=== PATIENT | female | born 1945 | race African-American/Black ===

== ENCOUNTER 2017-06-22 02:12 | Observation (INO) ==
[2017-06-22] MEDS ORDERED: ASPIRIN 325 MG TABLET PO STA (03:51)
[2017-06-22 04:04] LABS: Basophils % 0.2 % (0.0-0.8); Eosinophils % 0.1 % (0.00-10.9); Hematocrit 36.3 VOL% (35.7-47.0); Immature Granulocytes % 0.5 %; Immature Granulocytes Absolute 0.08 #; Lymphocytes % 17.4 % (21.3-54.2); Mean Corpuscular HGB Conc 35.8 GM/DL (32-36); Mean Corpuscular Hemoglobin 32 PG (27-34); Mean Corpuscular Volume 88.1 FL (87-102); Mean Platelet Volume 10.8 FL (9.6-12.0); Monocytes # 1.1 10*3/uL (0.11-0.8); Monocytes % 6.3 % (1.7-12.7); Neutrophils # 13.1 10*3/uL (1.4-7.4); Neutrophils % 75.5 % (38.7-73.9); Platelet Count 363 T/CUMM (130-400); Red Blood Count 4.12 MC/CUMM (3.8-5.5); Red Cell Distribution Width 11.5 % (9.3-17.3); White Blood Count 17.4 T/CUMM (4-12)
--- NOTE | 2017-06-22 04:13 | Emergency Department Note ---
Garry Negrete Manpreet, am scribing for, and in the presence of, Adria Schaefer MD 03:57. Silvano Negrete Frederick, MD, personally performed the services described in this documentation, ascribed by Lalo Castañeda in my presence, and it is both accurate and complete 413 . Arrival - Arrival Chief Complaint: Chest Pain Stated Complaint: CHest pain ED Nursing Triage Note: Patient to ED via EMS with c/o CP in the center of her chest and epigastric area that started when she laid down to go to bed. Patient was seen in ED yesterday for same c/o and Dx with indigestion. Patient states her s/s resolve when she sits up and worsens when she lays supine. Patient had nitro x3 and ASA en route. Mode of Arrival: Stretcher Source: Patient - History of Present Illness HPI Narrative: Pt is a 72 y/o female, with PMHx of HTN, HLD, and GERD, who presents to the ED with CC of waking up in CP and being diaphoresis. Pt c/o dry cough but denies N/ V. Pt states the pain radiates to her back. Pt did not take a temperature but states she might of had a fever. Pt's temperature during triage was 98.5 F. Pt states the pain has been going on since Saturday and is intermittent and last up to 30 minutes. Pt does not take blood thinner and her PCP is Dr. Aponte in [place], [place]. Pt was seen in the ED on Saturday for the same complaint and has been weak since. No other pains/complaints reported to the ED. Onset (ago): hour(s) Consistency: constant Severity: moderate Quality: sharp Date of Last Menstrual Period: HYST Allergies/Adverse Reactions: Allergies Allergy/AdvReac Type Severity Reaction Status Date / Time Penicillins Allergy RASH Verified 06/22/17 02:22 sulfamethoxazole Allergy RASH Verified 06/22/17 02:22 [From Bactrim] trimethoprim [From Bactrim] Allergy RASH Verified 06/22/17 02:22 Home Medications: Home Medications Medication Instructions Recorded Confirmed Type Estradiol [Estradiol Tab] 2 mg PO QAM 03/14/16 06/21/17 History Losartan Potassium [Cozaar] 100 mg PO BEDTIME 03/14/16 06/21/17 History hydroCHLOROthiazide 12.5 mg PO QAM 03/14/16 06/21/17 History [Hydrochlorothiazide] Bimatoprost 0.01% Oph Soln 1 drop BOTH EYES BEDTIME 06/17/17 06/21/17 History [Lumigan] HYDROcodone/ACETAMIN 7.5-325 1 tablet PO BID PRN 06/17/17 06/21/17 History [[place] 7.5-325] LORazepam TAB [Ativan Tab] 0.5 mg PO BEDTIME PRN 06/17/17 06/21/17 History Pravastatin [Pravachol] 20 mg PO BEDTIME 06/17/17 06/21/17 History amLODIPine [Norvasc] 2.5 mg PO QAM 06/17/17 06/21/17 History Metoclopramide Tab [Reglan Tab] 5 mg PO ACHS #40 tablet 06/21/17 Rx Pantoprazole Tab [Protonix Tab] 40 mg PO DAILY #30 tablet 06/21/17 Rx predniSONE TAB [PredniSONE] 20 mg PO QAM 06/21/17 06/21/17 History Review of System - Review of System 12 point system: reviewed and no additional remarkable complaints except as stated - Review of System Constitutional: Absent: chills, diaphoresis, fever Respiratory: Absent: cough, respiratory distress Cardiovascular: Present: chest pain. Absent: dyspnea on exertion Gastrointestinal: Absent: abdominal pain, nausea, vomiting Musculoskeletal: Absent: arm pain, back pain, leg pain, neck pain Neurological: Absent: headache, weakness, numbness, paresthesias Medical,Surgical,& Family Hx - Medical History Cardio: History of: Hypertension Endocrine: History of: Dyslipidemia Gastrointestinal: History of: GERD, GI Problems (previous EGD) - Surgical History Reproductive Surgeries: Surgical HX of;: Hysterectomy (FULL) - Family History Family History: Reports;: Family Cancer (NEICE AND SISTER-LUNG), Family Heart Disease (MOTHER), Family Hypertension (MOTHER AND FATHER), Family Stroke (MOTHER ) - Social History Smoking Status: Never smoker Frequency of Alcohol Use: None Type of Drug Use: None Exam Vital Signs: Vital Signs Temperature 98.5 F 06/22/17 02:17 Pulse Rate 91 H 06/22/17 02:17 Respiratory Rate 16 06/22/17 02:17 Blood Pressure 132/71 06/22/17 02:17 O2 Sat by Pulse Oximetry 100 06/22/17 02:17 - General General appearance: alert - Head Head exam: Present: atraumatic, other (Bilat temperal wasting) - Eye Eye exam: Present: normal appearance, PERRL, EOMI - ENT ENT exam: Present: normal exam, normal oropharynx, mucous membranes moist, TM's normal bilaterally - Neck Neck exam: Present: normal inspection, full ROM, trachea midline. Absent: tenderness, thyromegaly - Chest Chest inspection: Present: normal inspection, symmetric chest wall rise. Absent : tenderness - Respiratory Respiratory exam: Present: normal lung sounds bilaterally. Absent: accessory muscle use, respiratory distress, wheezes - Cardiovascular Cardiovascular exam: Present: regular rate, normal rhythm, normal heart sounds, murmur (2/6 systolic ejection murmur on sternal boarder). Absent: rubs, gallop - Abdominal Exam Abdominal exam: Present: soft, normal bowel sounds. Absent: distention, tenderness, guarding, rebound, rigidity - Extremities Exam Extremities exam: Present: normal inspection, full ROM. Absent: tenderness - Back Exam Back exam: Present: normal inspection, full ROM. Absent: tenderness - Neurological Exam Neurological exam: Present: alert, oriented X3, CN II-XII intact, reflexes normal - Psychiatric Psychiatric exam: Present: normal affect, normal mood - Skin Skin exam: Present: warm, dry, intact, normal color
[2017-06-22 04:21] LABS: Alanine Aminotransferase 23 U/L (13-56); Alkaline Phosphatase 78 U/L (45-117); Aspartate Amino Transferase 14 U/L (0-37); Bilirubin,Total < 0.39 MG/DL (0.2-1.0); Calcium 9.2 MG/DL (8.5-10.1); Total Protein 7.1 G/DL (6.4-8.3)
[2017-06-22 04:22] LABS: Albumin 3.4 G/DL (3.4-5.0); Blood Urea Nitrogen 11 MG/DL (7-18); Glucose 88 MG/DL (74-106); Magnesium 2.3 MG/DL (1.8-2.4); Osmolality,Calculated 276.4 MOS/KG (273-304); Potassium 3.6 MMOL/L (3.5-5.1); Sodium 140 MMOL/L (136-145)
[2017-06-22] MEDS ORDERED: ONDANSETRON 4 MG/2 ML VIAL IV PRN (05:37)
[2017-06-22] MEDS ORDERED: MORPHINE 2 MG/1 ML SYRINGE IV PRN (05:37)
[2017-06-22] MEDS ORDERED: DOCUSATE SODIUM 100 MG CAPSULE PO PRN (05:37)
[2017-06-22] MEDS ORDERED: ACETAMINOPHEN 325 MG TABLET PO PRN (05:37)
[2017-06-22] MEDS ORDERED: ZALEPLON 5 MG CAPSULE PO PRN (05:37)
[2017-06-22] MEDS ORDERED: ALUM/MAG/SIMETH/LIDO VISC 1:1 30 ML BOTTLE PO PRN (05:47)
--- NOTE | 2017-06-22 05:58 | Hospitalist History & Physical ---
Assessment and Plan - Time spent with patient Time spent with patient: Greater than 30 minutes (1) Chest pain Status: Acute Assessment and plan: Admit to telemetry bed to Hospital medicine consult cardiology NPO serial Troponin PRN medications vitals and monitoring per standard floor order labs: TSH, A1C, lipids, UA DVT prophylaxis further plan and addendum to follow per Dr. Atkins Current Visit: No History of Present Illness Chief complaint: Chest Pain, weakness History of present illness: Ms. Nash is a 72 year old female who presents to the ER this morning for midsternal to left sided chest pain. this is her third ER presentation this week for the same complaint. She states that she awoke from sleep mildly diaphoretic with a dull chest pain across her breast from right to left but worse on the left side. Denies the pain radiating. States she felt very weak, denies feeling nauseated, short of breath, dizzy or having palpitations. She states this pain is exactly the same as it has been the last few days. States pain will come, stay for a few hours and go away. States she has not taken any medication that has relieved it yet, was given three SL Nitro by EMS and states that this helped the pain for a little while but now it is returning. Describes pain as dull and constant when it is present. Also complains of generalized fatigue and weakness over the last week, pt is notably frail. She admits a past medical history of HTN and Hyperlipidemia, chart review shows notable history for GERD. pt was seen and discharged yesterday and three days ago for Gerd. Also treated in March of 2016 for chest pain with a discharge diagnosis of GERD, on that admission she saw Dr. Ferguson with cardiology and underwent a Lexiscan with normal results, had an ECHO showing an EF of 60%, and normal EKG and troponin. Today, and with both other visits this week, her EKG and troponin are WNL. She is noted to have an elevated WBC today, chest xray is normal, pt denies cough or recent illness, denies dysuria, Afebrile. She also is noted to have a left carotid artery bruit, this was noted present on her admission in 03/2016. states she has not been followed up for it. She does not smoke or drink. Only takes HTN and Hyperlipidemia medication daily. Lives at home with and is able to care for herself. Allergic to PCN and Bactrim. Pt verbalizes that she would like to be a DNR. Her PCP is Dr. Pacheco. Home Medications Medication Instructions Recorded Confirmed Type Estradiol [Estradiol Tab] 2 mg PO QAM 03/14/16 06/21/17 History Losartan Potassium [Cozaar] 100 mg PO BEDTIME 03/14/16 06/21/17 History hydroCHLOROthiazide 12.5 mg PO QAM 03/14/16 06/21/17 History [Hydrochlorothiazide] Bimatoprost 0.01% Oph Soln 1 drop BOTH EYES BEDTIME 06/17/17 06/21/17 History [Lumigan] HYDROcodone/ACETAMIN 7.5-325 1 tablet PO BID PRN 06/17/17 06/21/17 History [[place] 7.5-325] LORazepam TAB [Ativan Tab] 0.5 mg PO BEDTIME PRN 06/17/17 06/21/17 History Pravastatin [Pravachol] 20 mg PO BEDTIME 06/17/17 06/21/17 History amLODIPine [Norvasc] 2.5 mg PO QAM 06/17/17 06/21/17 History Metoclopramide Tab [Reglan Tab] 5 mg PO ACHS #40 tablet 06/21/17 Rx Pantoprazole Tab [Protonix Tab] 40 mg PO DAILY #30 tablet 06/21/17 Rx predniSONE TAB [PredniSONE] 20 mg PO QAM 06/21/17 06/21/17 History Allergies Allergy/AdvReac Type Severity Reaction Status Date / Time Penicillins Allergy RASH Verified 06/22/17 02:22 sulfamethoxazole Allergy RASH Verified 06/22/17 02:22 [From Bactrim] trimethoprim [From Bactrim] Allergy RASH Verified 06/22/17 02:22 Medical,Surgical,& Family Hx - Medical History Cardio: History of: Hypertension Endocrine: History of: Dyslipidemia Gastrointestinal: History of: GERD, GI Problems (previous EGD) - Surgical History Reproductive Surgeries: Surgical HX of;: Hysterectomy (FULL) - Family History Family History: Reports;: Family Cancer (NEICE AND SISTER-LUNG), Family Heart Disease (MOTHER), Family Hypertension (MOTHER AND FATHER), Family Stroke (MOTHER ) - Social History Smoking Status: Never smoker Frequency of Alcohol Use: None Type of Drug Use: None Marital Status: Lives With:: Spouse Functional capacity: independent ambulation - Constitutional Constitutional: Present: fatigue, malaise, weakness. Absent: frequent falls - EENT Eyes: Present: blurry vision Nose, mouth and throat: Absent: nasal congestion, sinus pressure, sore throat - Cardiovascular Cardiovascular: Present: chest pain at rest, chest pain with activity. Absent: dyspnea, dyspnea on exertion, edema, palpitations - Respiratory Respiratory: Absent: cough, dyspnea - Gastrointestinal Gastrointestinal: Absent: abdominal pain, nausea, vomiting - Genitourinary Genitourinary: Absent: dysuria, hematuria - Musculoskeletal Musculoskeletal: Present: muscle weakness. Absent: back pain - Neurological Neurological: Absent: confusion, focal weakness - Psychiatric Psychiatric: Absent: anxiety, confusion, depression - Endocrine Endocrine: Present: fatigue. Absent: polydipsia - Hematologic/Lymphatic Hematologic/Lymphatic: Absent: easy bleeding, easy bruising Exam - Constitutional Vitals: Period Temp Pulse Resp BP Sys/Walker Pulse Ox Last 24 Hr 98.5 F-98.5 F 91-91 16-18 132-132/71-71 100-100 General appearance: no acute distress, under weight - Head Head exam: Present: normal inspection, atraumatic - Eye Eye exam: Present: EOMI Pupils: Present: AGUSTINA - ENT ENT exam: Present: normal exam, normal oropharynx - Neck Neck exam: Present: normal inspection. Absent: lymphadenopathy - Respiratory Respiratory exam: Present: clear to auscultation bilaterally. Absent: rhonchi, wheezes - Cardiovascular Cardiovascular exam: Present: carotid bruit (notable left), regular rate and rhythm - GI/Abdominal GI/Abdominal exam: Present: normal bowel sounds, soft. Absent: distended, tenderness - Extremities Exam Extremities exam: Present: normal inspection, normal capillary refill, full ROM. Absent: edema - Back Exam Back exam: Present: normal inspection. Absent: muscle spasm - Neurological Exam Neurological exam: Present: alert, oriented X3, CN II-XII intact - Psychiatric Psychiatric exam: Present: normal affect, normal mood - Skin Skin exam: Present: normal color, warm, dry Results - Labs CBC & BMP: 06/22/17 03:40 06/22/17 03:40 Lab Results: I have reviewed the past 24 hour labs - EKG EKG shows: sinus rhythm - Diagnostic Findings Procedure: Chest x-ray: report reviewed by me
[2017-06-22] MEDS ORDERED: ENOXAPARIN 40 MG/0.4 ML SYRINGE SUBCUT SCH (06:00)
--- NOTE | 2017-06-22 06:12 | EKG Report ---
Stationary ECG Study [facility] ER Test Date: 06/22/2017 2:19:44 AM Pat Name: WILLIAM LASSITER Department: Room: EDWAIT Gender: F Record Clerk: : 1945 Requested by: Adria Schaefer Order Number: [id number] Reading MD: CEFERINO GUIDO Intervals [place] Rate: 81 P: 59 CA: 131 QRS: 56 QRSD: 85 T: 56 QT: 365 QTc: 402 Interpretive Statements SINUS RHYTHM MODERATE ST DEPRESSION Electronically Signed On 06-22-17 06:39:18 CDT by CEFERINO GUIDO [email or web address]
[2017-06-22 07:33] LABS: Troponin I Only < 0.015 NG/ML (0.00-0.045)
--- NOTE | 2017-06-22 08:50 | XRay Report ---
Portable chest Date: 06/22/2017 Clinical history: Chest pain Comparison: 06/21/2017 Technique: Portable AP sitting chest Findings: The heart is normal in size. The lungs and mediastinum are stable in appearance. No acute osseous findings. Impression: No acute cardiopulmonary pathology identified. PROCEDURE INTERPRETED AT [facility] DEPARTMENT OF RADIOLOGY Final Report Signed by: Dr. Ann Garcia
[2017-06-22] MEDS: NITROGLYCERIN 2% OINT 1 INCH/GM PACK TOP SCH ×2 (09:23→20:52)
[2017-06-22] MEDS: PANTOPRAZOLE 40 MG TABLET PO SCH (09:24)
--- NOTE | 2017-06-22 10:21 | Event Note ---
Patient seen and examined. H&P reviewed. I discussed with Dr. Roth who plans to proceed with cardiac catheterization today as she has had multiple presentations to the emergency department for recurrent chest pain.
[2017-06-22] MEDS ORDERED: MAGNESIUM SULF RIDER 2 GM in PREMIX 1 EACH IV PRN (10:27)
[2017-06-22] MEDS ORDERED: diphenhydrAMINE CAP 50 MG CAPSULE ONE (10:27)
[2017-06-22] MEDS ORDERED: diphenhydrAMINE CAP 25 MG CAPSULE PO ONE (10:27)
[2017-06-22] MEDS ORDERED: DIAZEPAM 5 MG TABLET PO ONE (10:27)
[2017-06-22] MEDS ORDERED: POTASSIUM CHLORIDE RIDER 10 MEQ in PREMIX 1 EACH IV PRN (10:27)
[2017-06-22] MEDS ORDERED: DIAZEPAM 5 MG TABLET ONE (10:28)
--- NOTE | 2017-06-22 10:31 | Cardiology Consult Note ---
Assessment and Plan (1) Chest pain Status: Acute Assessment and plan: This patient's had recurrent chest pain is somewhat questionable for cardiac. We will plan on carrying out cardiac catheterization is a we discussed above for definitive diagnosis. She has had recurrent pain in the hospital. Current Visit: No (2) Hyperlipidemia Status: Acute Assessment and plan: She is on medications for this is been followed by her PCP. Current Visit: No (3) Hypertension Status: Acute Assessment and plan: Vital signs are stable. She will continue present medications for this. Current Visit: No History of Present Illness - Data of Consult Patient: new to practice Consult date: 06/22/17 Requesting Physician: Pavel Atkins - Consult Narrative Reason for consult: Chest pain History of present illness: Ms. Nash is a 72 year old female who has had year and a half history of chest pain and apparently had a cardiac perfusion study stress test a year over year ago in March 2016 that was unremarkable. The patient those had continued recurrent episodes of this chest pain in fact to be in the emergency room 3 times this past week. Her workup is been negative without any acute ECG changes and her troponins have been nondetectable. She states that on this visit when the EMS picked her up should I gave her several nitroglycerin with improvement of her pain. She has had chest pain since being admitted. She has not had a cholecystectomy. Certainly her pain is questionable cardiac. Because she continues to have recurrent episodes for which she comes emergency room with and the fact that she is having pain will improve with nitroglycerin and has risk factors to cardiac catheterization for definitive diagnosis and therapy direction. I did discuss heart catheterization with the patient her family which include her is well and has 2 nieces. I reviewed with them the indication procedure how would be carried out and the risk. I discussed cardiac catheterization and percutaneous coronary intervention with the patient and available family. I reviewed with them the indications for the procedure and the basis of how the procedure would be carried out. I also reviewed with them the risk of the procedure which include but not necessarily limited to access site bleeding, bruising, pain, swelling or vascular injury that may require emergency vascular surgery, blood transfusion, or thrombin injection. Also discussed the possibility of stroke, myocardial infarction, arrhythmia which may require electrocardioversion, and the possibility of dye reaction that would require medical therapy. Also discussed the possibility of coronary artery injury, ruptured, closure or perforation that may require emergency bypass surgery. We also discussed the possibility of from a major complication. They voice understanding and agree to proceed. We will make further recommendations based on findings of the catheterization. CC: Dorothy Ruth - Home Medications and Allergies Home Medications: Home Medications Medication Instructions Recorded Confirmed Type Estradiol [Estradiol Tab] 2 mg PO QAM 03/14/16 06/22/17 History Losartan Potassium [Cozaar] 100 mg PO BEDTIME 03/14/16 06/22/17 History hydroCHLOROthiazide 12.5 mg PO QAM 03/14/16 06/22/17 History [Hydrochlorothiazide] Bimatoprost 0.01% Oph Soln 1 drop BOTH EYES BEDTIME 06/17/17 06/22/17 History [Lumigan] HYDROcodone/ACETAMIN 7.5-325 1 tablet PO BID PRN 06/17/17 06/22/17 History [[place] 7.5-325] LORazepam TAB [Ativan Tab] 0.5 mg PO BEDTIME PRN 06/17/17 06/22/17 History Pravastatin [Pravachol] 20 mg PO BEDTIME 06/17/17 06/22/17 History amLODIPine [Norvasc] 2.5 mg PO QAM 06/17/17 06/22/17 History predniSONE TAB [PredniSONE] 20 mg PO QAM 06/21/17 06/22/17 History Estradiol Tab [Estrace Tab] 2 mg PO DAILY 06/22/17 06/22/17 History Estradiol [Estradiol Tab] 2 mg PO ONCE 06/22/17 06/22/17 History Allergies/Adverse Reactions: Allergies Allergy/AdvReac Type Severity Reaction Status Date / Time Penicillins Allergy RASH Verified 06/22/17 02:22 sulfamethoxazole Allergy RASH Verified 06/22/17 02:22 [From Bactrim] trimethoprim [From Bactrim] Allergy RASH Verified 06/22/17 02:22 Review of systems: Constitutional: Denies anorexia, chills, fatigue, fever, frequent falls, night sweats, weight gain, weight loss Eyes: Denies visual changes or loss of vision Ears: Denies decreased hearing, vertigo Nose, mouth and throat: Denies dysphagia, epistaxis, headaches, neck pain, tongue swelling, Neck: Denies thyromegaly or masses. No stiffness. Cardiovascular: as per HPI Respiratory: Denies cough, dyspnea, hemoptysis, dyspnea on exertion, wheezing, snoring Gastrointestinal: Denies abdominal pain, constipation, dyspepsia, dysphagia, hematemesis, hematochezia, melena, nausea, vomiting Genitourinary: Denies dysuria, hematuria, nocturia Musculoskeletal: Denies arthralgias, joint swelling, muscle weakness, myalgias Neurological: denies abnormal gait, abnormal speech, confusion, convulsions, frequent falls, headaches, memory loss, syncope Psychiatric: Denies anxiety, confusion, depression Endocrine: Denies cold intolerance, fatigue, heat intolerance Hematologic/Lymphatic: Denies easy bleeding, easy bruising Dermatologic: Denies Rash, itching, shingles Medical,Surgical,& Family Hx - Medical History Cardio: History of: Hypertension Comment Only: Cardiovascular Problems (heart murmer) Endocrine: History of: Dyslipidemia Gastrointestinal: History of: GERD, GI Problems (previous EGD) - Surgical History Abdominal Surgeries: Surgical HX of: Appendectomy Reproductive Surgeries: Surgical HX of;: Gynecologic Surgery, Hysterectomy (FULL ) - Family History Family History: Reports;: Family Cancer (NEICE AND SISTER-LUNG), Family Heart Disease (MOTHER), Family Hypertension (MOTHER AND FATHER), Family Stroke (MOTHER ) - Social History Smoking Status: Never smoker Frequency of Alcohol Use: None Type of Drug Use: None Marital Status: Lives With:: Spouse Functional capacity: independent ambulation Physical Examination Vital Signs Temp Pulse Resp BP Pulse Ox 98.5 F 91 H 16 132/71 100 06/22/17 02:17 06/22/17 02:17 06/22/17 02:17 06/22/17 02:17 06/22/17 02:17 Exam: General appearance: normal weight, no acute distress Head exam: normal inspection, atraumatic Eye exam: Pupils are equal and reactive. EOMI. There is no trauma. Ear exam: Anatomically normal. Normal auditory acuity to conversation. Oral exam: No significant oral lesions. Neck exam: normal inspection no JVD. 3/6 left systolic carotid bruit. Trachea is in midline. Respiratory exam: clear to auscultation bilaterally posteriorly and anteriorly with good air movement. No rales, rhonchi or wheezes. Cardiovascular exam: regular rate and rhythm, no murmur or gallop or rub. No precordial lift. No bruits over the major arteries. Chest wall/torso: Anatomically normal. Chest wall tenderness with palpation along the left lower parasternal area. Peripheral Pulses: 2+ throughout. GI/Abdominal exam: normal bowel sounds, soft and nontender, no abdominal bruits or pulsatile masses. Musculoskeletal/Extremities exam: normal inspection without edema or cyanosis. No deformities or trauma. Neurological exam: alert, oriented X3. There is no gross neurologic deficits. Psychiatric exam: normal affect, normal mood. Cognitive function is grossly intact. Skin exam: normal color, warm. No rashes or other skin lesions. Result/EKG - Labs CBC & BMP: 06/22/17 03:40 06/22/17 03:40 Lab Results: I have reviewed the past 24 hour labs Labs: Laboratory Results - last 24 hr 06/22/17 06/22/17 06/22/17 03:40 03:40 03:40 WBC RBC Hgb Hct MCV MCH MCHC RDW Plt Count MPV Neut % (Auto) Lymph % (Auto) Hettinger % (Auto) Eos % (Auto) Baso % (Auto) Neut # (Auto) Lymph # (Auto) Hettinger # (Auto) Eos # (Auto) Baso # (Auto) Immature Gran % Nucleated RBC % Immature Gran # Nucleated RBCs # Immature Plt Fraction INR 1.0 PT Patient/Control Mix 10.0 Sodium 140 Potassium 3.6 Chloride 106 Carbon Dioxide 25 Anion Gap 12.6 BUN 11 Creatinine 0.80 GFR Calculation 66 BUN/Creatinine Ratio 13.00 Glucose 88 Calculated Osmolality 276.4 Calcium 9.2 Magnesium 2.3 Total Bilirubin < 0.39 AST 14 ALT 23 Alkaline Phosphatase 78 Total Creatine Kinase CK-MB (CK-2) Troponin I < 0.015 B-Natriuretic Peptide Total Protein 7.1 Albumin 3.4 Globulin 3.7 H Albumin/Globulin Ratio 0.9 L Lipase 103.0 06/22/17 06/22/17 06/22/17 03:40 03:40 06:46 WBC 17.4 H RBC 4.12 Hgb 13.0 Hct 36.3 MCV 88.1 MCH 32 MCHC 35.8 RDW 11.5 Plt Count 363 MPV 10.8 Neut % (Auto) 75.5 H Lymph % (Auto) 17.4 L Hettinger % (Auto) 6.3 Eos % (Auto) 0.1 Baso % (Auto) 0.2 Neut # (Auto) 13.1 H Lymph # (Auto) 3.0 Hettinger # (Auto) 1.1 H Eos # (Auto) 0.0 Baso # (Auto) 0.0 Immature Gran % 0.5 Nucleated RBC % 0.0 Immature Gran # 0.08 Nucleated RBCs # 0.00 Immature Plt Fraction 0.0 INR PT Patient/Control Mix Sodium Potassium Chloride Carbon Dioxide Anion Gap BUN Creatinine GFR Calculation BUN/Creatinine Ratio Glucose Calculated Osmolality Calcium Magnesium Total Bilirubin AST ALT Alkaline Phosphatase Total Creatine Kinase 62 CK-MB (CK-2) 1.0 Troponin I < 0.015 B-Natriuretic Peptide 9 Total Protein Albumin Globulin Albumin/Globulin Ratio Lipase - Impressions Impressions: EKG was sinus rhythm and nonspecific ST flattening but no acute changes.
[2017-06-22] MEDS: SODIUM CHLORIDE 0.9% 1,000 ML IV SCH ×3 (10:39→20:54)
[2017-06-22] MEDS ORDERED: MIDAZOLAM 2 MG/2 ML VIAL ONE (10:46)
[2017-06-22] MEDS ORDERED: LIDOCAINE 1% 20 ML VIAL ONE (10:46)
[2017-06-22] MEDS ORDERED: fentaNYL 100 MCG/2 ML VIAL ONE (10:46)
--- NOTE | 2017-06-22 11:01 | History and Physical Update ---
Sedation H&P Update - History and Physical H&P was reviewed, the patient examined and there: are no changes in the patients condition since last H&P was completed. - Dictation Physical: refer to H&P completed by admitting physician - Physical Exam Mental Status: alert and oriented Heart: regular rate and rhythm Lung: clear to auscultation Abdomen: within normal limits Vitals: within normal limits History and Physical Changes: None - Sedation Plan for Sedation: moderate Patient Consent: Procedure disscussed with patient and patinet has consented., Risks and benefits were discussed with patient,including infection,, bleeding, injury to surrounding structures, seizure, temporary nerve, Patient understands and accepts potential risks/benefits and agrees to, proceed. ASA Class: III Airway Assessment: Class II: Soft palate, uvula, fauces visible
[2017-06-22] MEDS ORDERED: NITROGLYCERIN DRIP 50 MG/250 ML BOTTLE IV ONE (11:24)
--- NOTE | 2017-06-22 11:39 | Operative Note ---
Date of procedure: 06/22/17 Procedure Preformed: Left heart catheterization with LV gram and coronary artery angiography. Surgeon / Physician: Kelby Roth Spot Welder Line: Nery Estrella Post-op diagnosis: same Findings: Mild coronary artery disease. Specimens: none sent Estimated blood loss: minimal Condition: stable Anesthesia: local, conscious sedation Disposition: floor
--- NOTE | 2017-06-22 11:57 | Cardiac Catheterization ---
Date of Procedure:: 06/22/17 Pre-op Diagnosis: Chest pain possible coronary artery disease. Post-op diagnosis: same Procedure: LEFT HEART CATHERIZATION History: 72-year-old female recurrent chest pain with normal cardiac enzymes unremarkable ECG. Risk factors for coronary disease. Pre-Op diagnosis: Chest pain coronary disease. Postoperative diagnosis: Mild coronary disease. Procedures: 1. Left heart catheterization. 2. Left ventricular angiogram. 3. Selective left and right coronary angiograms. 4. Right common femoral artery angiogram with Angio-Seal hemostasis. 5. Left internal mammary artery/left subclavian artery angiogram. 6. Intracoronary nitroglycerin of the left coronary system. Equipment: 6 Guyanese arterial sheath, 6 Guyanese diagnostic pigtail catheter, JL4 and JR4 diagnostic catheters. A 6 Guyanese Angio-Seal hemostatic device. Medications: Preoperative Benadryl and Valium given by mouth. Lidocaine 1% local anesthesia 5 mls administered by myself. Intraprocedure patient received Versed 1 mgs IVP, fentanyl 50 mcg IVP, Dilaudid mgs IVP. Complications: None immediate. Contrast: Omnipaque 70 milliliters. Description of procedure: After informed consent the patient was given preoperative medications and brought to the catheterization laboratory where their right groin was prepped and draped in usual fashion. IV sedation was then obtained after which local anesthesia was administered at the right groin over the right common femoral artery. Using modified Seldinger technique the right common femoral artery was cannulated with 6 Guyanese arterial sheath placed. The pigtail catheter was then advanced through the sheath in a retrograde approach through the aorta to the aortic valve. The catheter was advanced through the aortic valve where left ventricular pressures were measured. The catheter was then pulled back into the aortic root and pressures measured. The catheter was then advanced across the aortic valve into the left ventricle where left ventricular angiogram was obtained in the right anterior oblique view. The pigtail catheter was then removed. The JL4 diagnostic coronary catheter was then advanced through the sheath in a retrograde approach and used to cannulate the left coronary artery of which angiograms were obtained in multiple projections. This catheter was then removed. The JR 4 diagnostic coronary catheter was then advanced retrograde through the aorta and used to cannulate the right coronary artery of which angiograms were obtained in multiple projections. This right coronary catheter was used to obtain selective left internal mammary artery angiogram. Angiograms were then reviewed. The right coronary catheter was pulled back into the sheath where a right common femoral artery angiogram was obtained with Angio-Seal hemostasis then obtained of this vessel. There were no immediate complications. Hemodynamic data: LV 159/-11, EDP 9; AO root 161/65, mean 102. Left ventricular angiogram: Left ventricle is overall normal size normal systolic function ejection fraction 60+%. There is no mitral valve regurgitation. Aortic valve history of tricuspid structure. The thoracic aorta including the arch are overall unremarkable. Calcification. The abdominal aorta with calcification. Iliac arteries on runoff appear to be intact and patent, right comfort arteries intact with sheath inserted in this vessel. Left main coronary artery angiogram: Left main coronary artery is really a small vessel. All of her coronaries are small. There is some dampening of pressure but good reflux of contrast from the ostium of the left main coronary. On some views there appear to be some narrowing but this resolved with intracoronary nitroglycerin. There is good flow into the LAD and circumflex arteries. Left anterior descending artery angiogram: The LAD is small medium caliber vessel. There is calcification present proximally. The vessel does extend the posterior apex. Diagonal branches are all small caliber vessels. There is some mid LAD stenosis of 30%. RENATA-3 flow was present. Circumflex artery angiogram: Circumflex artery is a small medium caliber vessel that is nondominant. The first obtuse marginal branch is small medium caliber vessel. Right coronary artery angiogram: The RCA is a medium caliber vessel that is dominant. The PDA is medium caliber with small medium caliber posterolateral branch is a small AV node artery. There is some minimal calcification diffuse irregularities but no obstructive disease. Left internal mammary artery/left subclavian artery angiogram: A flush angiogram the left subclavian artery with runoff into the GUTIERRES and proximal subclavian artery was carried out. There is calcification and plaque in the left subclavian artery but with good flow. The GUTIERRES is patent. I suspect this is at least 50% 60% subclavian stenosis. Right common femoral artery angiogram: This vessel seen by way of LV gram runoff and is patent with the sheath inserted in the cuff artery. Successful initial hemostasis. Impression: 1. Left ventricle is normal size systolic function with ejection fraction of 60+%. No segmental wall motion maladies. 2. LVEDP is normal at 9 mmHg. 3. There are valve is atretic obstructed without gradient. 4. There is no significant mitral valve regurgitation. 5. Right coronary artery luminal irregularities and is dominant. It is a medium caliber vessel with largest. 6. Left main coronary is relatively small vessel but for her size is small medium caliber. It really appears to be patent but that may be some generalized narrowing. 7. The LAD with some calcification approximately but with the most severe stenosis appreciated at 30%. 8. Circumflex artery small to medium caliber vessel nondominant. It worse has no irregularities. 9. Right common femoral arteries intact with successful Angio-Seal hemostasis. 10. There is a 50-60% left subclavian stenosis. Discussion: This patient's coronary arteries are all small. She is a small patient weighs only 88 pounds. There was some question whether the left main coronary artery had some significant narrowing. I do not think this is the case especially for nitroglycerin. The catheter itself is larger than her coronary arteries. This patient's arteries are small because of her size. I do not see disease to account for account for her symptomatology. I think her risk factor modification needs to be continued. She has a bruit in her left neck and I suspect it is actually secondary to her left subclavian artery stenosis. We will monitor the patient. Implants: None Anesthesia: local, moderate conscious sedation Surgeon / Physician: [facility] Recruiting Intern: other (Nery LEIVA) Estimated blood loss: minimal Specimens: none sent Condition: stable Disposition: floor - Medications / Follow-up
--- NOTE | 2017-06-22 12:28 | Event Note ---
Patient stable postcatheterization right groin stable. As my cardiac catheterization report notes she does not have significant coronary disease certainly not obstructive coronary disease. He is mildly worse. I do not find disease that would account for her symptoms. If this time she needs medical therapy in this regard. I do not think her rest pain is cardiac in nature. She certainly has chest wall tenderness that may be associated with this. She may respond to Toradol. I did discuss this case with Dr. Hicks and I think the patient has to be discharged later this afternoon after she is up and ambulating. We will plan on seeing her back in 1-2 weeks.
--- NOTE | 2017-06-22 12:39 | Discharge Summary ---
Hospital Course - Hospital Course Hospital Course: 72-year-old -[place] female who presented to the emergency room with midsternal to left-sided chest pain. This is 30 her presentation this week for the same complaint. She states that she was awakened from sleep and mildly diaphoretic with dull chest pain across her breast from right to left but worse on the left side. She was admitted to the hospitalist service and treated medically. Serial cardiac biomarkers were unremarkable and she was seen by cardiology. Dr. Roth took her to the [facility] and she underwent cardiac catheterization revealing mild coronary disease. There is nothing there to suggest the etiology of her pain and it was felt that she could be discharged home with outpatient follow-up. - Time spent with patient Time with patient DS: Less than 30 minutes Diagnosis - Discharge Diagnosis (1) Chest pain Status: Acute (2) Hypertension Status: Acute (3) Hyperlipidemia Status: Acute Discharge Plan - Discharge Data Disposition: Disch To Home/Self Care Condition at Discharge: Stable Discharge Diet: heart healthy Activity: resume usual activities as tolerated Contact your physician if you experience:: fever over 101, Redness or swelling, Shortness of breath, Bleeding - Discharge Medications New Pantoprazole Tab [Protonix Tab] 40 mg PO DAILY #30 tablet Aspirin EC Tab 81 mg PO DAILY tablet Continue Losartan Potassium [Cozaar] 100 mg PO BEDTIME hydroCHLOROthiazide [Hydrochlorothiazide] 12.5 mg PO QAM Estradiol [Estradiol Tab] 2 mg PO QAM LORazepam TAB [Ativan Tab] 0.5 mg PO BEDTIME PRN PRN Reason: Sleep Pravastatin [Pravachol] 20 mg PO BEDTIME Bimatoprost 0.01% Oph Soln [Lumigan] 1 drop BOTH EYES BEDTIME amLODIPine [Norvasc] 2.5 mg PO QAM predniSONE TAB [PredniSONE] 20 mg PO QAM HYDROcodone/ACETAMIN 7.5-325 [[place] 7.5-325] 1 tablet PO BID PRN PRN Reason: Pain Discontinued Estradiol Tab [Estrace Tab] 2 mg PO DAILY Estradiol [Estradiol Tab] 2 mg PO ONCE - Follow Up or Referral Follow Up: Kelby Roth MD [Physician] - 2 Weeks Blanca Aponte MD [Primary Care Provider] - 1 Week - Forms/Instructions Instructions: Acute Coronary Syndrome Additional Discharge Instructions: Patient may be discharged home with outpatient follow-up when she meets discharge criteria post cardiac catheterization. Exam - Constitutional Vitals: Period Temp Pulse Resp BP Sys/Walker Pulse Ox Last 24 Hr 97.2 F-98.5 F 68-91 16-73 132-155/68-80 100-100 General appearance: no acute distress - Head Head exam: Present: normocephalic, atraumatic - Eye Eye exam: Present: EOMI Pupils: Present: AGUSTINA - ENT ENT exam: Present: normal exam - Neck Neck exam: Present: normal inspection - Respiratory Respiratory exam: Present: clear to auscultation bilaterally. Absent: rales, rhonchi, wheezes - Cardiovascular Cardiovascular exam: Present: regular rate and rhythm. Absent: tachycardia - GI/Abdominal GI/Abdominal exam: Present: normal bowel sounds, soft. Absent: mass, tenderness , rebound - Extremities Exam Extremities exam: Absent: calf tenderness, edema - Back Exam Back exam: Present: normal inspection - Neurological Exam Neurological exam: Present: alert, oriented X3, CN II-XII intact. Absent: motor sensory deficit - Psychiatric Psychiatric exam: Present: normal affect, normal mood. Absent: agitated, anxious - Skin Skin exam: Present: warm, dry. Absent: erythema Discharge Results Procedures and tests throughout hospitalization: Pending Orders 06/22/17 05:45 Urinalysis Routine 06/22/17 06:48 US carotid duplex BI Routine 06/22/17 10:45 CL heart Stat 06/22/17 12:21 Troponin,CKMB & Ck Total Q6H 06/22/17 18:00 Troponin,CKMB & Ck Total Q6H 06/23/17 04:00 Free T4 (Free Thyroxine) IN AM Hemoglobin A1C IN AM Lipid Panel IN AM Thyroid Stimulating Hormone IN AM Labs on day of discharge: Labs from last 24 hours 06/22/17 06/22/17 06/22/17 06:46 03:40 03:40 WBC 17.4 H RBC 4.12 Hgb 13.0 Hct 36.3 MCV 88.1 MCH 32 MCHC 35.8 RDW 11.5 Plt Count 363 MPV 10.8 Neut % (Auto) 75.5 H Lymph % (Auto) 17.4 L [place] % (Auto) 6.3 Eos % (Auto) 0.1 Baso % (Auto) 0.2 Neut # (Auto) 13.1 H Lymph # (Auto) 3.0 [place] # (Auto) 1.1 H Eos # (Auto) 0.0 Baso # (Auto) 0.0 Immature Gran % 0.5 Nucleated RBC % 0.0 Immature Gran # 0.08 Nucleated RBCs # 0.00 Immature Plt Fraction 0.0 INR PT Patient/Control Mix Sodium Potassium Chloride Carbon Dioxide Anion Gap BUN Creatinine GFR Calculation BUN/Creatinine Ratio Glucose Calculated Osmolality Calcium Magnesium Total Bilirubin AST ALT Alkaline Phosphatase Total Creatine Kinase 62 CK-MB (CK-2) 1.0 Troponin I < 0.015 B-Natriuretic Peptide 9 Total Protein Albumin Globulin Albumin/Globulin Ratio Lipase 06/22/17 06/22/17 06/22/17 03:40 03:40 03:40 WBC RBC Hgb Hct MCV MCH MCHC RDW Plt Count MPV Neut % (Auto) Lymph % (Auto) [place] % (Auto) Eos % (Auto) Baso % (Auto) Neut # (Auto) Lymph # (Auto) [place] # (Auto) Eos # (Auto) Baso # (Auto) Immature Gran % Nucleated RBC % Immature Gran # Nucleated RBCs # Immature Plt Fraction INR 1.0 PT Patient/Control Mix 10.0 Sodium 140 Potassium 3.6 Chloride 106 Carbon Dioxide 25 Anion Gap 12.6 BUN 11 Creatinine 0.80 GFR Calculation 66 BUN/Creatinine Ratio 13.00 Glucose 88 Calculated Osmolality 276.4 Calcium 9.2 Magnesium 2.3 Total Bilirubin < 0.39 AST 14 ALT 23 Alkaline Phosphatase 78 Total Creatine Kinase CK-MB (CK-2) Troponin I < 0.015 B-Natriuretic Peptide Total Protein 7.1 Albumin 3.4 Globulin 3.7 H Albumin/Globulin Ratio 0.9 L Lipase 103.0 DS: Provider Date of admission: 06/22/17 05:37 Primary care physician: Blanca Luciano Attending physician on admission: Pavel Atkins MD Consults: 06/22/17 05:44 Consult to Physician [CONS] Routine Comment: chest pain Consulting Provider: Cardiology - [facility] 06/22/17 07:01 Consult to Dietitian [CONS] Routine Reason for Dietitian: Dietary Consult 06/22/17 11:39 Consult to Cardiac Rehabilitation [CONS] Routine Reason for Cardiac Rehabilitation: Risk Factor Modification Discharging clinician: Dorothy Ruth Expected date of discharge: 06/22/17
[2017-06-22 13:25] LABS: Troponin I Only < 0.015 NG/ML (0.00-0.045)
--- NOTE | 2017-06-22 16:49 | Ultrasound Report ---
Exam: Carotid ultrasound Date: 06/22/2017 Comparison: 11/28/2010 Technique: Duplex scans of the carotid and vertebral arteries using B-mode/Viera scale imaging and Doppler spectral analysis and color flow. Reason: Left carotid bruit Findings: The right ICA measures 4.0 mm in diameter and the left ICA measures 4.1 mm in diameter. Color-flow documented in the visualized arteries. The peak systolic velocities are as follows: Right CCA: 79.4 cm/s Right ICA: 114.1 cm/s Right ECA: 88.6 cm/s Left CCA: 71.4 cm/s Left ICA: 86.2 cm/s Left ECA: 94.0 cm/s The peak systolic ICA/CCA velocity ratios are as follows: 1.4 on the right and 1.2 on the left. Antegrade flow is present in right vertebral artery. No flow identified in left vertebral artery. Impression:[Less than 50% stenosis in both internal carotid arteries with progressive heterogeneous plaque formation. Antegrade flow in the right vertebral artery. No flow in the left vertebral artery which can be seen with small artery not identified or interval occlusion.] The Society of Radiologists in Ultrasound consensus conference criteria was used. The Ultrasound images were captured and stored. PROCEDURE INTERPRETED AT [facility] DEPARTMENT OF RADIOLOGY Final Report Signed by: Dr. Ann Garcia
[2017-06-22 18:33] LABS: Troponin I Only < 0.015 NG/ML (0.00-0.045)
[2017-06-22] MEDS ORDERED: ATORVASTATIN 20 MG TABLET PO SCH (21:00)
[2017-06-23] MEDS: SODIUM CHLORIDE 0.9% 1,000 ML IV SCH (05:54)
[2017-06-23 05:56] LABS: Risk Ratio 1.92; Thyroid Stimulating Hormone 1.65 uIU/ml (0.358-3.74); VLDL CHOLESTEROL 12.4 MG/DL
[2017-06-23 07:31] VITALS: BP 132/60
--- NOTE | 2017-06-23 07:52 | Event Note ---
For some reason patient was not discharged last evening. She still complains of chest pain. I reassured her in the family this is noncardiac in etiology and how to handle this at home. She is currently afebrile vital signs are stable, regular rate and rhythm, lungs clear abdomen soft, extremities no clubbing cyanosis or edema, right groin without bleeding or hematoma. Plan discharge home as outlined on discharge summary yesterday.
[2017-06-23] MEDS: NITROGLYCERIN 2% OINT 1 INCH/GM PACK TOP SCH (08:35)
[2017-06-23] MEDS: PANTOPRAZOLE 40 MG TABLET PO SCH (08:35)
[2017-06-23] MEDS ORDERED: ASPIRIN EC 81 MG TABLET PO SCH (09:00)
--- NOTE | 2017-06-23 10:08 | Cardiology Progress Note ---
Assessment and Plan (1) Chest pain Status: Acute Assessment and plan: Is unlikely this patient's chest pain is cardiac. She still has chest wall tenderness which is probably the source of this. Current Visit: No (2) Hyperlipidemia Status: Acute Assessment and plan: She is on medications for this is been followed by her PCP. Her lipids are stable with a total cholesterol 169 with an LDL of 76 and HDL of 88. Current Visit: No (3) Hypertension Status: Acute Assessment and plan: Blood pressure stable we will continue present medications. Current Visit: No Cardiology - PN: Subj Interval history: Patient is doing well this morning patient denies any chest pain. She does have some chest wall soreness still on palpation reproduces her pain. Her right groin is stable. She does not have any shortness of breath. Again I discussed with the patient and her family her cardiac catheterization results. I do not think any further cardiac evaluation needed at this time. Will follow up with the patient though. Do question whether not Toradol would be of benefit to her. Exam (Progress Note) - Constitutional Vitals: Period Temp Pulse Resp BP Sys/Walker Pulse Ox Last 24 Hr 97 F-97.9 F 57-86 16-20 100-157/55-85 98-100 Exam: General appearance: Frail, no acute distress HEENT: Atraumatic stable. Neck exam: normal inspection no JVD. 3/6 left systolic carotid bruit. Trachea is in midline. Respiratory exam: clear to auscultation bilaterally posteriorly and anteriorly with good air movement. No rales, rhonchi or wheezes. Cardiovascular exam: regular rate and rhythm, no murmur or gallop or rub. No precordial lift. No bruits over the major arteries. Chest wall/torso: Anatomically normal. Chest wall tenderness with palpation along the left lower parasternal area. Peripheral Pulses: 2+ throughout. GI/Abdominal exam: normal bowel sounds, soft and nontender, no abdominal bruits or pulsatile masses. Musculoskeletal/Extremities exam: normal inspection without edema or cyanosis. No deformities or trauma. Neurological exam: alert, oriented X3. There is no gross neurologic deficits. Psychiatric exam: normal affect, normal mood. Cognitive function is grossly intact. Skin exam: normal color, warm. No rashes or other skin lesions. Result/EKG - Labs CBC & BMP: 06/22/17 03:40 06/22/17 03:40 Labs: Laboratory Results - last 24 hr 06/22/17 06/22/17 06/23/17 12:21 17:57 04:12 Hemoglobin A1c Total Creatine Kinase 102 D 70 D CK-MB (CK-2) 1.3 1.5 Troponin I < 0.015 < 0.015 Triglycerides 62 Cholesterol 169 LDL Cholesterol 76.0 VLDL Cholesterol 12.4 HDL Cholesterol 88 H Heart Disease Risk Ratio 1.92 Free T4 TSH 3rd Generation 1.650 06/23/17 06/23/17 04:12 04:12 Hemoglobin A1c 5.5 Total Creatine Kinase CK-MB (CK-2) Troponin I Triglycerides Cholesterol LDL Cholesterol VLDL Cholesterol HDL Cholesterol Heart Disease Risk Ratio Free T4 1.15 TSH 3rd Generation - Impressions Impressions: Telemetry normal sinus rhythm Quality Measures - VTE Contraindication to Pharmacological VTE Prophylaxis: High Risk of Bleeding Specialty Discharge - Follow Up or Referrals Follow up with: Kelby Roth MD [Physician] - 2 Weeks (see Dr. Roth for follow up appointment in 1-2 weeks) Blanca Aponte MD [Primary Care Provider] - 1 Week
== END 2017-06-23 10:17 | disposition home or self-care (01) ==
LOC: EDBD → EDUNIT# → N.EDINP 02:12 → N.ED 02:12 → SUATTDRO 05:37 → N.EDINP 06:27 → N.TELEN 06:32
PROVIDERS: ADMIT Family Medicine; ATTEND Hospitalist

== ENCOUNTER 2017-08-22 13:43 | Inpatient (IN) ==
[~2017-08-22 13:43] MED LIST: BISACODYL 5 MG TABLET PO ONE
[2017-08-22] MEDS ORDERED: SODIUM CHLORIDE 0.9% 500 ML IV STA (15:03)
[2017-08-22] MEDS ORDERED: ALUM/MAG/SIMETH/LIDO VISC 1:1 30 ML BOTTLE PO STA (15:03)
[2017-08-22] MEDS ORDERED: PANTOPRAZOLE 40 MG VIAL IV STA (15:03)
[2017-08-22] MEDS ORDERED: ONDANSETRON 4 MG/2 ML VIAL IV STA (15:03)
[2017-08-22] MEDS ORDERED: HYDROmorphone 2 MG/1 ML VIAL IV STA (15:03)
[2017-08-22 15:17] LABS: Basophils # 0.1 10*3/uL (0.0-0.2); Basophils % 0.5 % (0.0-0.8); Eosinophils % 0.4 % (0.00-10.9); Hematocrit 38.6 VOL% (35.7-47.0); Hemoglobin 13.4 GM/DL (12.0-16.0); Immature Granulocytes % 0.3 %; Immature Granulocytes Absolute 0.03 #; Lymphocytes # 2.5 10*3/uL (1.4-4.0); Lymphocytes % 22.8 % (21.3-54.2); Mean Corpuscular HGB Conc 34.7 GM/DL (32-36); Mean Corpuscular Hemoglobin 31 PG (27-34); Mean Corpuscular Volume 88.9 FL (87-102); Mean Platelet Volume 10.5 FL (9.6-12.0); Monocytes # 0.9 10*3/uL (0.11-0.8); Monocytes % 7.7 % (1.7-12.7); Neutrophils # 7.6 10*3/uL (1.4-7.4); Neutrophils % 68.3 % (38.7-73.9); Platelet Count 356 T/CUMM (130-400); Red Blood Count 4.34 MC/CUMM (3.8-5.5); Red Cell Distribution Width 10.9 % (9.3-17.3); White Blood Count 11.1 T/CUMM (4-12)
[2017-08-22] MEDS ORDERED: HYDROmorphone 2 MG/1 ML VIAL ONE (15:17)
[2017-08-22] MEDS ORDERED: ONDANSETRON 4 MG/2 ML VIAL ONE (15:17)
[2017-08-22] MEDS ORDERED: PANTOPRAZOLE 40 MG VIAL IV ONE (15:17)
[2017-08-22] MEDS ORDERED: ALUM/MAG/SIMETH/LIDO VISC 1:1 30 ML BOTTLE PO ONE (15:18)
[2017-08-22 15:42] LABS: Lactic Acid 1.2 MMOL/L (0.4-2.0)
[2017-08-22 15:56] LABS: Alanine Aminotransferase 29 U/L (13-56); Albumin 3.6 G/DL (3.4-5.0); Alkaline Phosphatase 104 U/L (45-117); Amylase 111 U/L (25-115); Aspartate Amino Transferase 19 U/L (0-37); Bilirubin,Total < 0.39 MG/DL (0.2-1.0); Blood Urea Nitrogen 6 MG/DL (7-18); Calcium 9.4 MG/DL (8.5-10.1); Glucose 96 MG/DL (74-106); Magnesium 2.6 MG/DL (1.8-2.4); Osmolality,Calculated 270.8 MOS/KG (273-304); Potassium 3.3 MMOL/L (3.5-5.1); Sodium 137 MMOL/L (136-145); Total Protein 7.8 G/DL (6.4-8.3); Troponin I Only < 0.015 NG/ML (0.00-0.045)
[2017-08-22] MEDS ORDERED: POTASSIUM CHLORIDE 20 MEQ TABLET PO STA (16:08)
[2017-08-22] MEDS ORDERED: POTASSIUM CHLORIDE 20 MEQ TABLET PO ONE (16:12)
[2017-08-22 16:24] LABS: Apearance,Urine CLEAR (Clear); Bilirubin,Urine Negative (Negative); Blood, Urine Small mg/dL (Negative); Glucose,Urine (UA) Negative (Negative); Ketones,Urine Negative (Negative); Nitrite,Urine Negative (Negative); Protein,Urine Negative; RBC,Urine <1 /HPF (0-4); Squamous Epithelial Cell,Urine Occasional /HPF (0-10); Urine Color Straw (Yellow); Urine Specific Gravity 1.002 (1.001-1.035); Urine Urobilinogen < 2.0 EU/DL (0.2-1.0)
[2017-08-22] MEDS ORDERED: POLYETHYLENE GLYCOL POWDER 255 GM BOTTLE PO ONE (18:00)
[2017-08-22] MEDS ORDERED: POLYETHYLENE GLYCOL 3350/ELECTROLYTES 4,000 ML BOTTLE PO ONE (18:00)
[2017-08-22 18:18] LABS: INR 0.9; PT Patient Result 9.8 SECS
[2017-08-22] MEDS ORDERED: LORazepam 0.5 MG TABLET PO PRN (19:08)
[2017-08-22] MEDS ORDERED: ZALEPLON 5 MG CAPSULE PO PRN (19:08)
[2017-08-22] MEDS ORDERED: ACETAMINOPHEN 325 MG TABLET PO PRN (19:08)
[2017-08-22] MEDS ORDERED: ONDANSETRON 4 MG/2 ML VIAL IV PRN (19:08)
[2017-08-22] MEDS ORDERED: BISACODYL 5 MG TABLET PO ONE (19:30)
[2017-08-22] MEDS: POTASSIUM CHLORIDE INJ 40 MEQ in SODIUM CHLORIDE 0.9% 1,000 ML IV SCH (20:53)
[2017-08-22] MEDS: PRAVASTATIN 20 MG TABLET PO SCH (21:00)
[2017-08-22] MEDS: LOSARTAN 50 MG TABLET PO SCH (21:05)
[2017-08-22] MEDS: BIMATOPROST 0.01% OPH SOLN 2.5 ML BOTTLE BOTH EYES SCH (23:36)
[2017-08-23] MEDS: POTASSIUM CHLORIDE INJ 40 MEQ in SODIUM CHLORIDE 0.9% 1,000 ML IV SCH (04:40)
[2017-08-23 05:36] LABS: Basophils % 0.4 % (0.0-0.8); Eosinophils % 0.3 % (0.00-10.9); Hematocrit 36.1 VOL% (35.7-47.0); Hemoglobin 12.4 GM/DL (12.0-16.0); Immature Granulocytes % 0.3 %; Immature Granulocytes Absolute 0.03 #; Lymphocytes # 2.3 10*3/uL (1.4-4.0); Lymphocytes % 21.1 % (21.3-54.2); Mean Corpuscular HGB Conc 34.3 GM/DL (32-36); Mean Corpuscular Hemoglobin 31 PG (27-34); Mean Corpuscular Volume 90.7 FL (87-102); Mean Platelet Volume 11.3 FL (9.6-12.0); Monocytes # 0.9 10*3/uL (0.11-0.8); Monocytes % 7.9 % (1.7-12.7); Neutrophils # 7.5 10*3/uL (1.4-7.4); Platelet Count 344 T/CUMM (130-400); Red Blood Count 3.98 MC/CUMM (3.8-5.5); White Blood Count 10.7 T/CUMM (4-12)
[2017-08-23 06:03] LABS: Calcium 8.5 MG/DL (8.5-10.1); Osmolality,Calculated 281.8 MOS/KG (273-304); Potassium 4.5 MMOL/L (3.5-5.1)
[2017-08-23] MEDS: PANTOPRAZOLE 40 MG TABLET PO SCH (08:21)
[2017-08-23] MEDS ORDERED: LIDOCAINE 2% 5 ML VIAL ONE (09:00)
[2017-08-23] MEDS ORDERED: amLODIPine 2.5 MG TABLET PO SCH (09:00)
[2017-08-23] MEDS ORDERED: PROPOFOL 200 MG/20 ML VIAL IV ONE (09:00)
[2017-08-23] MEDS ORDERED: SODIUM CHLOR 0.9% KCL 40 MEQ 40 MEQ/1,000 ML BAG IV SCH (12:00)
[2017-08-23] MEDS: PRAVASTATIN 20 MG TABLET PO SCH (20:33)
[2017-08-23] MEDS: LOSARTAN 50 MG TABLET PO SCH (20:33)
[2017-08-23] MEDS ORDERED: SIMETHICONE CHEW 80 MG TABLET PO ONE (22:11)
[2017-08-23] MEDS: BIMATOPROST 0.01% OPH SOLN 2.5 ML BOTTLE BOTH EYES SCH (23:24)
[2017-08-24 04:38] LABS: Calcium 8.7 MG/DL (8.5-10.1); Osmolality,Calculated 276.4 MOS/KG (273-304); Potassium 3.9 MMOL/L (3.5-5.1)
[2017-08-24] MEDS: PANTOPRAZOLE 40 MG TABLET PO SCH (08:56)
[2017-08-24] MEDS: amLODIPine 5 MG TABLET PO SCH (08:56)
[2017-08-24 17:44] LABS: HIV Antigen/Antibody Result Nonreactive (Nonreactive)
[2017-08-24] MEDS: LOSARTAN 50 MG TABLET PO SCH (20:18)
[2017-08-24] MEDS: PRAVASTATIN 20 MG TABLET PO SCH (20:18)
[2017-08-24] MEDS: BIMATOPROST 0.01% OPH SOLN 2.5 ML BOTTLE BOTH EYES SCH (20:20)
[2017-08-25 07:07] LABS: Calcium 9.1 MG/DL (8.5-10.1); Osmolality,Calculated 277.3 MOS/KG (273-304)
[2017-08-25] MEDS: amLODIPine 5 MG TABLET PO SCH (09:44)
[2017-08-25] MEDS: PANTOPRAZOLE 40 MG TABLET PO SCH (09:44)
[2017-08-25] MEDS ORDERED: MAGNESIUM HYDROXIDE SUSP 30 ML UDCUP PO PRN ×3 (10:12→11:32)
[2017-08-25 13:49] VITALS: BP 131/63
[2017-08-25] MEDS ORDERED: PANTOPRAZOLE 40 MG TABLET PO SCH (21:00)
== END 2017-08-25 15:10 | disposition home or self-care (01) | DRG 384 ==
LOC: N.ED 13:43 → N.EDINP 17:21 → N.TELES 18:15 → N.4E 08-23 11:55
PROVIDERS: ADMIT Internal Medicine; ATTEND Internal Medicine